=== PATIENT | female | born 1985 | race Caucasian/White ===

== ENCOUNTER 2016-05-22 16:34 | Emergency (ER) | payer MEDICAID ==
[~2016-05-22] VITALS: Ht 160 cm; Wt 143.2 kg
[~2016-05-22 16:34] MED LIST: 00186-0372-20 IH; ALBUTEROL0.83 MG/ML IH; AMITRIPTYLINE H50 M1 PO; AMOXICILLIN 50500 MG PO; AMOXICILLIN 8751 TAB PO; BUSPAR10 MG PO; CLARITIN 1010 MG/TAB PO; CYMBALTA 30MG30 MG PO; CYMBALTA 60MG60 MG PO; DIABETA 5MG5 MG/TAB PO; FENUGREEK610 MG PO; FIORICET 325 MG1 TA1 PO; FLEXERIL 1010 MG/TAB PO; GLUCOPHAGE1000 MG PO; HYDROCODONE/APAP; IBUPROFEN; IRON325 MG PO; KEPPRA1000 MG PO; LANTUS100 U/ML SQ; LIORESAL 1010 MG/TAB PO; LORTAB 5/500 501 TAB PO; LYRICA 25MG CAP25 MG PO; LYRICA 50MG CAP50 MG PO; MELATONIN5 M2 PO; MIGRAINE MEDICATION; MOTRIN 800800 MG/TAB PO; NAPROSYN500 MG PO; NORCO 325 MG-51 TAB PO; NORCO 325 MG-7.1 TAB PO; NOVOLOG 100U100 U/M1 SQ; PERCOCET 325 MG1 TA2 PO; PERCOCET 325 MG1 TAB PO; PERCR 7.5 PO; PHENERGAN 25 TA25 MG PO; PHENERGAN25 MG RC; PREDNISONE20 MG PO; PRENATAL1 TA1 PO; PRENATAL1 TA7 PO; PRILOSEC 20MG20 MG PO; REGLAN 10MG10 MG/TAB PO; REQUIP0.25 MG PO; SINGULAIR 110 MG/TAB PO; SOMA 350MG350 MG/TAB PO; TESSALON PERLE200 MG PO; TORADOL 10MG TA10 MG PO; TROKEND100; ULTRAM 50MG TAB50 MG PO; VENTOLIN0.09 MG IH; XANAX 0.5MG0.5 MG PO; XANAX 1MG1 MG PO; ZITHROMAX Z PA250 MG PO; ZOFRAN 4MG T4 MG/TAB PO; ZOFRAN8 MG PO
[2016-05-22 16:35] VITALS: TEMP 97.8
[2016-05-22 18:33] LABS: ADJUSTED CALCIUM 8.8 mg/dL (8.4-10.2); ALBUMIN 4.2 gm/dL (3.5-5.0); BILIRUBIN,TOTAL 0.5 mg/dL (0.0-1.0); CREATININE, serum 0.58 mg/dL (0.52-1.25); POTASSIUM 4.1 mmol/L (3.4-5.0); TOTAL PROTEIN 8.3 gm/dL (6.4-8.2)
[2016-05-22 18:34] LABS: BASO % 0.1 % (0.0-2.0); EOS # 0.2 (0.0-0.7); GRAN % 66.6 % (42.2-75.2); HEMATOCRIT 40.9 % (37.0-47.0); HEMOGLOBIN 12.6 g/dl (12.5-16.0); LYMPH # 2.9 (1.2-3.4); LYMPH % 27.4 % (20.0-51.0); MEAN CELL VOLUME 80 fl (80.0-100.0); MEAN CORPUSCULAR HEMOGLOBIN 25 pg (27.0-31.0); MEAN CORPUSCULAR HGB CONC 31 g/dl (33.0-37.0); MEAN PLATELET VOLUME 10.3 fl (7.4-10.4); MONO # 0.4 (0.1-0.6); MONO % 3.6 % (1.7-9.3); PLATELET COUNT 286 K/mm3 (130-400); RED BLOOD COUNT 5.12 M/mm3 (4.10-5.30); REDCELL DISTRIBUTION WIDTH-CV 16.6 % (11.5-14.5); WHITE BLOOD COUNT 10.5 K/mm3 (4.8-10.8)
[2016-05-22] MEDS ORDERED: ORTHO-CYCLEN 351 TAB PO (18:50)
[2016-05-22 19:05] VITALS: BP 121/76; PULSE 72
== END 2016-05-22 19:07 | disposition home or self-care (01) ==
LOC: COL.ER 16:34
PROVIDERS: Emergency Medicine
DX: N92.0 Excessive and frequent menstruation with regular cycle (principal); E11.9 Type 2 diabetes mellitus without complications; Z79.84 Long term (current) use of oral hypoglycemic drugs
CPT/HCPCS: J2270

== ENCOUNTER 2016-07-21 23:31 | Emergency (ER) | payer MEDICAID ==
[~2016-07-21] VITALS: Ht 162.6 cm; Wt 143.2 kg
[~2016-07-21 23:31] MED LIST changes: +ORTHO-CYCLEN 351 TAB PO
[2016-07-21 23:35] VITALS: BP 127/80; TEMP 96.8
[2016-07-22 00:34] LABS: INFLUENZA B NEGATIVE
[2016-07-22 01:55] VITALS: PULSE 94
== END 2016-07-22 01:56 | disposition home or self-care (01) ==
LOC: COL.ER 23:31
PROVIDERS: Physician Assistant
DX: R05 Cough (principal); E66.01 Morbid (severe) obesity due to excess calories; Z68.43 Body mass index [BMI] 50.0-59.9, adult
CPT/HCPCS: J1100

== ENCOUNTER → 2016-09-17 | Outpatient (CLI) | payer MEDICAID ==
[~2016-09-17] MED LIST changes: +ZOFRAN ODT4 MG PO
== END ==
LOC: MHCPAIN 09:41
DX: G89.29 Other chronic pain (principal); M47.817 Spondylosis without myelopathy or radiculopathy, lumbosacral region; M53.3 Sacrococcygeal disorders, not elsewhere classified; F17.210 Nicotine dependence, cigarettes, uncomplicated
CPT/HCPCS: G0463

== ENCOUNTER 2016-09-29 03:01 | Emergency (ER) | payer MEDICAID ==
[~2016-09-29] VITALS: Ht 162.6 cm; Wt 150.0 kg
[~2016-09-29 03:01] MED LIST changes: -ZOFRAN ODT4 MG PO
[2016-09-29 03:13] VITALS: TEMP 99.2
[2016-09-29 04:47] LABS: BASO % 0.1 % (0.0-2.0); EOS # 0.2 (0.0-0.7); EOS % 2.6 % (0-4.0); GRAN # 6.4 (1.4-6.5); GRAN % 72.3 % (42.2-75.2); HEMATOCRIT 40.1 % (37.0-47.0); HEMOGLOBIN 12.2 g/dl (12.5-16.0); LYMPH # 1.8 (1.2-3.4); LYMPH % 20.1 % (20.0-51.0); MEAN CELL VOLUME 81 fl (80.0-100.0); MEAN CORPUSCULAR HEMOGLOBIN 25 pg (27.0-31.0); MEAN CORPUSCULAR HGB CONC 30 g/dl (33.0-37.0); MEAN PLATELET VOLUME 9.8 fl (7.4-10.4); MONO # 0.4 (0.1-0.6); MONO % 4.4 % (1.7-9.3); PLATELET COUNT 243 K/mm3 (130-400); RED BLOOD COUNT 4.96 M/mm3 (4.10-5.30); WHITE BLOOD COUNT 8.8 K/mm3 (4.8-10.8)
[2016-09-29 04:59] LABS: PH 6 (5-8); URINE APPEARANCE Clear; URINE BILIRUBIN Negative (NEGATIVE); URINE BLOOD 3+ (NEGATIVE); URINE COLOR Yellow; URINE GLUCOSE 1+ (NEGATIVE); URINE KETONE Negative (NEGATIVE); URINE UROBILINOGEN Negative (NEGATIVE)
[2016-09-29 05:02] LABS: URINE RBC 20-50 /hpf; URINE WBC 0-2 /hpf
[2016-09-29 05:03] LABS: ADJUSTED CALCIUM 8.1 mg/dL (8.4-10.2); ALBUMIN 3.8 gm/dL (3.5-5.0); BILIRUBIN,TOTAL 0.5 mg/dL (0.0-1.0); C-REACTIVE PROTEIN 2.2 mg/dL (0.0-0.9); CALCIUM 7.9 mg/dL (8.4-10.2); CREATININE, serum 0.5 mg/dL (0.52-1.25); POTASSIUM 4.1 mmol/L (3.4-5.0); TOTAL PROTEIN 7.5 gm/dL (6.4-8.2)
[2016-09-29] MEDS ORDERED: ZOFRAN ODT4 MG PO (05:35)
[2016-09-29] MEDS ORDERED: NORCO 325 MG-51 TAB PO (05:35)
[2016-09-29 05:52] VITALS: BP 117/64; PULSE 73
== END 2016-09-29 05:55 | disposition home or self-care (01) ==
LOC: COL.ER 03:01
PROVIDERS: Family Medicine
DX: S39.012A Strain of muscle, fascia and tendon of lower back, initial encounter (principal); S33.9XXA Sprain of unspecified parts of lumbar spine and pelvis, initial encounter; W18.30XA Fall on same level, unspecified, initial encounter; M48.00 Spinal stenosis, site unspecified; G89.29 Other chronic pain; E11.9 Type 2 diabetes mellitus without complications; Z79.84 Long term (current) use of oral hypoglycemic drugs
CPT/HCPCS: J2405; J2550; J7030

== ENCOUNTER 2017-02-12 20:32 | Emergency (ER) | payer MEDICAID ==
[~2017-02-12] VITALS: Ht 160 cm; Wt 135.0 kg
[~2017-02-12 20:32] MED LIST changes: +ZOFRAN ODT4 MG PO
[2017-02-12 20:35] VITALS: BP 138/85; TEMP 98
[2017-02-12 21:33] LABS: PH 8 (5-8); SQUAMOUS EPITHELIAL 0-2 /hpf; URINE APPEARANCE Clear; URINE BACTERIA Rare /hpf; URINE BILIRUBIN Negative (NEGATIVE); URINE BLOOD Negative (NEGATIVE); URINE COLOR Straw; URINE GLUCOSE 3+ (NEGATIVE); URINE KETONE Negative (NEGATIVE); URINE RBC 0-2 /hpf; URINE UROBILINOGEN Negative (NEGATIVE); URINE WBC 0-2 /hpf
[2017-02-12] MEDS ORDERED: CANA100T PO (21:36)
[2017-02-12 21:40] VITALS: PULSE 82
== END 2017-02-12 21:40 | disposition home or self-care (01) ==
LOC: COL.ER 20:32
PROVIDERS: Family Medicine
DX: G89.29 Other chronic pain (principal); M54.5 Low back pain; E66.9 Obesity, unspecified; R20.3 Hyperesthesia; R11.2 Nausea with vomiting, unspecified; Z68.43 Body mass index [BMI] 50.0-59.9, adult; Z79.84 Long term (current) use of oral hypoglycemic drugs
CPT/HCPCS: J2270; J2360; J2550

== ENCOUNTER 2017-07-19 15:52 | Emergency (ER) | payer MEDICAID ==
[~2017-07-19] VITALS: Ht 162.6 cm; Wt 143.2 kg
[~2017-07-19 15:52] MED LIST changes: +CANA100T PO
[2017-07-19 15:56] VITALS: TEMP 97.9
[2017-07-19 16:43] LABS: BASO % 0.2 % (0.0-2.0); EOS # 0.4 (0.0-0.7); EOS % 3.8 % (0-4.0); GRAN # 5.9 (1.4-6.5); GRAN % 60.2 % (42.2-75.2); HEMATOCRIT 42.4 % (37.0-47.0); HEMOGLOBIN 13.1 g/dl (12.5-16.0); LYMPH % 30.9 % (20.0-51.0); MEAN CELL VOLUME 81 fl (80.0-100.0); MEAN CORPUSCULAR HEMOGLOBIN 25 pg (27.0-31.0); MEAN CORPUSCULAR HGB CONC 31 g/dl (33.0-37.0); MEAN PLATELET VOLUME 9.6 fl (7.4-10.4); MONO # 0.4 (0.1-0.6); MONO % 4.5 % (1.7-9.3); PLATELET COUNT 275 K/mm3 (130-400); RED BLOOD COUNT 5.27 M/mm3 (4.10-5.30)
[2017-07-19] MEDS ORDERED: PROVERA 10MG10 MG PO (17:04)
[2017-07-19 17:16] VITALS: BP 125/68; PULSE 78
== END 2017-07-19 17:46 | disposition home or self-care (01) ==
LOC: COL.ER 15:52
PROVIDERS: Physician Assistant
DX: N93.8 Other specified abnormal uterine and vaginal bleeding (principal); E11.9 Type 2 diabetes mellitus without complications; E66.01 Morbid (severe) obesity due to excess calories; Z79.4 Long term (current) use of insulin

== ENCOUNTER → 2017-08-12 | Outpatient (CLI) | payer MEDICAID ==
[~2017-08-12] MED LIST changes: +PROVERA 10MG10 MG PO
== END ==
LOC: COL.RAD 08:24
DX: R11.2 Nausea with vomiting, unspecified (principal)
CPT/HCPCS: A9541

== ENCOUNTER 2017-10-16 23:58 | Emergency (ER) | payer MEDICAID ==
[~2017-10-16] VITALS: Ht 162.6 cm; Wt 150.0 kg
[2017-10-17 00:09] VITALS: BP 136/71; TEMP 98.2
[2017-10-17 01:08] LABS: COLLECTION METHOD CLEAN CATCH
[2017-10-17 01:11] LABS: BASO % 0.2 % (0.0-2.0); EOS # 0.3 (0.0-0.7); EOS % 2.2 % (0-4.0); GRAN % 68.4 % (42.2-75.2); HEMATOCRIT 42.2 % (37.0-47.0); HEMOGLOBIN 13.1 g/dl (12.5-16.0); LYMPH # 3.3 (1.2-3.4); MEAN CELL VOLUME 77 fl (80.0-100.0); MEAN CORPUSCULAR HEMOGLOBIN 24 pg (27.0-31.0); MEAN CORPUSCULAR HGB CONC 31 g/dl (33.0-37.0); MONO # 0.5 (0.1-0.6); MONO % 3.7 % (1.7-9.3); PLATELET COUNT 305 K/mm3 (130-400); RED BLOOD COUNT 5.45 M/mm3 (4.10-5.30); REDCELL DISTRIBUTION WIDTH-CV 17.3 % (11.5-14.5)
[2017-10-17 01:16] LABS: PH 7 (5-8); URINE APPEARANCE Hazy; URINE BACTERIA None Seen /hpf; URINE BILIRUBIN Negative (NEGATIVE); URINE BLOOD Negative (NEGATIVE); URINE COLOR Yellow; URINE GLUCOSE 3+ (NEGATIVE); URINE KETONE Negative (NEGATIVE); URINE LEUKOCYTE ESTERASE Negative (NEGATIVE); URINE NITRATE Negative (NEGATIVE); URINE PROTEIN(semi-quant) Negative (NEGATIVE); URINE RBC 0-2 /hpf; URINE UROBILINOGEN Negative (NEGATIVE)
[2017-10-17 01:21] LABS: ALBUMIN 4.1 gm/dL (3.5-5.0); BILIRUBIN,TOTAL 0.5 mg/dL (0.0-1.0); CALCIUM 9.4 mg/dL (8.4-10.2); CREATININE, serum 0.52 mg/dL (0.52-1.25); POTASSIUM 3.8 mmol/L (3.4-5.0); TOTAL PROTEIN 8.9 gm/dL (6.4-8.2)
[2017-10-17 01:29] LABS: C-REACTIVE PROTEIN 2.7 mg/dL (0.0-0.9)
[2017-10-17 02:55] VITALS: PULSE 68
== END 2017-10-17 02:56 | disposition home or self-care (01) ==
LOC: COL.ER 23:58
PROVIDERS: Nurse Practitioner Primary Care
DX: R11.2 Nausea with vomiting, unspecified (principal); R10.31 Right lower quadrant pain; R10.11 Right upper quadrant pain; E11.9 Type 2 diabetes mellitus without complications; J45.909 Unspecified asthma, uncomplicated; K21.9 Gastro-esophageal reflux disease without esophagitis; F17.210 Nicotine dependence, cigarettes, uncomplicated; Z90.49 Acquired absence of other specified parts of digestive tract; Z98.890 Other specified postprocedural states; Z79.4 Long term (current) use of insulin
CPT/HCPCS: J2270; J2765; J7030; Q9967

== ENCOUNTER → 2018-04-22 | Outpatient (CLI) | payer MEDICAID | LOC: COL.RAD 14:45 | DX: R11.2 Nausea with vomiting, unspecified (principal); R10.9 Unspecified abdominal pain; R12 Heartburn; R19.7 Diarrhea, unspecified; Z90.49 Acquired absence of other specified parts of digestive tract ==

== ENCOUNTER 2018-05-01 13:26 | Day surgery (SDC) | payer MEDICAID ==
[~2018-05-01] VITALS: Ht 160 cm; Wt 130.5 kg
[2018-05-01] MEDS ORDERED: FIORICET 325 MG1 TA1 PO (13:57)
[2018-05-01] MEDS ORDERED: IPRATROPIUM BROM3 M1 IH (13:57)
[2018-05-01] MEDS ORDERED: LIPITOR 10MG10 MG PO (13:58)
[2018-05-01] MEDS ORDERED: REQUIP 1MG T1 MG/TAB PO (13:58)
[2018-05-01] MEDS ORDERED: PRILOSEC 20MG20 MG PO (13:58)
[2018-05-01] MEDS ORDERED: PHENERGAN 25 TA25 MG PO (13:59)
[2018-05-01] MEDS ORDERED: PROAIR HFA0.09 MG/AC IH (13:59)
[2018-05-01] MEDS ORDERED: HUMULIN 70/3100 U/M1 SQ (14:00)
[2018-05-01 14:06] VITALS: BP 132/81; PULSE 89; TEMP 97
[2018-05-01 15:00] VITALS: BP 132/76; PULSE 86; TEMP 97
[2018-05-01 15:15] VITALS: BP 118/53; PULSE 76
[2018-05-01 15:30] VITALS: BP 119/63; PULSE 62
[2018-05-01 15:45] VITALS: BP 112/63; PULSE 75
== END 2018-05-01 16:15 | disposition home or self-care (01) ==
LOC: SDCO 13:26
DX: K21.9 Gastro-esophageal reflux disease without esophagitis (principal); K44.9 Diaphragmatic hernia without obstruction or gangrene; R10.9 Unspecified abdominal pain; K58.0 Irritable bowel syndrome with diarrhea; Z87.11 Personal history of peptic ulcer disease; Z79.899 Other long term (current) drug therapy; J45.909 Unspecified asthma, uncomplicated; R13.10 Dysphagia, unspecified
CPT/HCPCS: J2250; J2405; J3010; J7030

== ENCOUNTER 2018-06-06 07:31 | Emergency (ER) | payer MEDICAID ==
[~2018-06-06] VITALS: Ht 165.1 cm; Wt 126.4 kg
[~2018-06-06 07:31] MED LIST changes: +HUMULIN 70/3100 U/M1 SQ; +IPRATROPIUM BROM3 M1 IH; +LIPITOR 10MG10 MG PO; +PROAIR HFA0.09 MG/AC IH; +REQUIP 1MG T1 MG/TAB PO
[2018-06-06 07:38] VITALS: TEMP 98.4
[2018-06-06] MEDS ORDERED: NORCO 325 MG-51 TAB PO (09:09)
[2018-06-06] MEDS ORDERED: LIDODERM 5% PATC1 EA TP (09:31)
[2018-06-06 09:43] VITALS: BP 113/48; PULSE 71
== END 2018-06-06 09:43 | disposition home or self-care (01) ==
LOC: COL.ER 07:31
DX: S39.012A Strain of muscle, fascia and tendon of lower back, initial encounter (principal); E11.9 Type 2 diabetes mellitus without complications; F43.10 Post-traumatic stress disorder, unspecified; F31.9 Bipolar disorder, unspecified; G43.909 Migraine, unspecified, not intractable, without status migrainosus; F17.210 Nicotine dependence, cigarettes, uncomplicated; Z90.49 Acquired absence of other specified parts of digestive tract; Z98.890 Other specified postprocedural states; Z79.4 Long term (current) use of insulin; W00.0XXA Fall on same level due to ice and snow, initial encounter
CPT/HCPCS: J1885

== ENCOUNTER → 2019-05-19 | Outpatient (CLI) | payer MEDICAID ==
[~2019-05-19] MED LIST changes: +LIDODERM 5% PATC1 EA TP
== END ==
LOC: MHCPAIN 10:10
DX: M54.12 Radiculopathy, cervical region (principal); M47.812 Spondylosis without myelopathy or radiculopathy, cervical region
CPT/HCPCS: G0463

== ENCOUNTER 2020-09-06 09:45 | Outpatient (CLI) | payer MEDICAID ==
[~2020-09-06] VITALS: Ht 165.2 cm; Wt 142.0 kg
[~2020-09-06 09:45] MED LIST changes: -LYRICA 50MG CAP50 MG PO; +LYRICA200 MG PO; -PROAIR HFA0.09 MG/AC IH
[2020-09-06 10:14] VITALS: BP 123/68; PULSE 61; TEMP 97.8
[2020-09-06] MEDS ORDERED: PROAIR HFA0.09 MG/AC IH (10:40)
[2020-09-06] MEDS ORDERED: NORCO 325 MG-51 TAB PO (10:43)
[2020-09-06] MEDS ORDERED: RT ADVAIR 128 DISKUS IH (10:44)
[2020-09-06] MEDS ORDERED: PROVIGIL200 MG PO (10:45)
[2020-09-06] MEDS ORDERED: LAMICTAL XR50 MG PO (10:46)
[2020-09-06] MEDS ORDERED: BUSPAR10 MG PO (10:50)
[2020-09-06] MEDS ORDERED: BYDUREON B2 MG/0.85 IJ (10:50)
[2020-09-06] MEDS ORDERED: UBRELVY50 MG PO (10:51)
[2020-09-06] MEDS ORDERED: SINGULAIR 110 MG/TAB PO (10:52)
[2020-09-06] MEDS ORDERED: LIPITOR 10MG10 MG PO (10:53)
[2020-09-06] MEDS ORDERED: TROKEND100 PO (10:56)
[2020-09-06] MEDS ORDERED: PRENATAL PLUS PO (10:56)
[2020-09-06] MEDS ORDERED: ZOLOFT 100MG100 MG PO (10:57)
[2020-09-06] MEDS ORDERED: INDOCIN50 MG PO (10:57)
--- NOTE | 2020-09-06 11:52 | NUR ---
Pt returned from procedure.
[2020-09-06 12:00] VITALS: BP 123/68; PULSE 59
[2020-09-06 12:15] VITALS: BP 121/72; PULSE 58
[2020-09-06 12:30] VITALS: BP 128/72; PULSE 58
--- NOTE | 2020-09-06 12:40 | NUR ---
Discharge instructions given to pt.Pt verbalizes understanding.INT removed,catheter tip intact.Pt escorted out via wheelchair.
[2020-09-06 12:45] VITALS: BP 123/83; PULSE 52
== END 2020-09-06 13:38 | disposition home or self-care (01) ==
LOC: COL.CAR 09:45
DX: R55 Syncope and collapse (principal); R00.2 Palpitations; R07.9 Chest pain, unspecified; R06.02 Shortness of breath; M19.90 Unspecified osteoarthritis, unspecified site; J45.909 Unspecified asthma, uncomplicated; M51.34 Other intervertebral disc degeneration, thoracic region; I95.9 Hypotension, unspecified; G43.909 Migraine, unspecified, not intractable, without status migrainosus; E66.9 Obesity, unspecified; G47.30 Sleep apnea, unspecified; E11.9 Type 2 diabetes mellitus without complications; M48.00 Spinal stenosis, site unspecified; M50.20 Other cervical disc displacement, unspecified cervical region; F41.9 Anxiety disorder, unspecified; Z90.89 Acquired absence of other organs; Z20.822 Contact with and (suspected) exposure to COVID-19; Z88.1 Allergy status to other antibiotic agents; Z91.040 Latex allergy status; Z88.8 Allergy status to other drugs, medicaments and biological substances; Z79.891 Long term (current) use of opiate analgesic; Z79.899 Other long term (current) drug therapy; Z79.84 Long term (current) use of oral hypoglycemic drugs; Z87.891 Personal history of nicotine dependence; Z82.49 Family history of ischemic heart disease and other diseases of the circulatory system

== ENCOUNTER 2020-09-18 11:14 | Emergency (ER) | payer MEDICAID ==
[~2020-09-18] VITALS: Ht 162.6 cm; Wt 140.9 kg
[~2020-09-18 11:14] MED LIST changes: +BYDUREON B2 MG/0.85 IJ; +INDOCIN50 MG PO; +LAMICTAL XR50 MG PO; +PRENATAL PLUS PO; +PROAIR HFA0.09 MG/AC IH; +PROVIGIL200 MG PO; +RT ADVAIR 128 DISKUS IH; +TROKEND100 PO; +UBRELVY50 MG PO; +ZOLOFT 100MG100 MG PO
[2020-09-18 11:26] VITALS: TEMP 98
[2020-09-18] MEDS ORDERED: TOPAMAX50 MG PO (12:06)
[2020-09-18 12:16] LABS: COLLECTION METHOD CLEAN CATCH
[2020-09-18 12:28] LABS: PH 6 (5-8); SQUAMOUS EPITHELIAL 0-2 /hpf; URINE APPEARANCE Clear; URINE BACTERIA None Seen /hpf; URINE BILIRUBIN Negative (NEGATIVE); URINE BLOOD Negative (NEGATIVE); URINE COLOR Straw; URINE GLUCOSE 3+ (NEGATIVE); URINE KETONE Negative (NEGATIVE); URINE LEUKOCYTE ESTERASE Negative (NEGATIVE); URINE NITRATE Negative (NEGATIVE); URINE PROTEIN(semi-quant) Negative (NEGATIVE); URINE RBC 0-2 /hpf; URINE UROBILINOGEN Negative (NEGATIVE)
[2020-09-18 13:02] LABS: BASO % 0.2 % (0.0-2.0); EOS # 0.2 (0.0-0.7); EOS % 1.7 % (0-4.0); GRAN # 7.2 (1.4-6.5); GRAN % 71.8 % (42.2-75.2); HEMATOCRIT 43.3 % (37.0-47.0); HEMOGLOBIN 13.1 g/dl (12.5-16.0); LYMPH # 2.1 (1.2-3.4); LYMPH % 20.6 % (20.0-51.0); MEAN CELL VOLUME 82 fl (80.0-100.0); MEAN CORPUSCULAR HEMOGLOBIN 25 pg (27.0-31.0); MEAN CORPUSCULAR HGB CONC 30 g/dl (33.0-37.0); MEAN PLATELET VOLUME 9.9 fl (7.4-10.4); MONO # 0.5 (0.1-0.6); MONO % 5.3 % (1.7-9.3); PLATELET COUNT 242 K/mm3 (130-400); RED BLOOD COUNT 5.27 M/mm3 (4.10-5.30); REDCELL DISTRIBUTION WIDTH-CV 17.9 % (11.5-14.5)
[2020-09-18 13:22] LABS: ALANINE AMINOTRANSFERASE 15 U/L (4-34); ALBUMIN 4.3 gm/dL (3.5-5.0); ALKALINE PHOSPHATASE 93 U/L (50-136); ANION GAP 9 mmol/L (7-16); AST,SGOT 17 U/L (15-37); BILIRUBIN,TOTAL < 0.1 mg/dL (0.0-1.0); BLOOD UREA NITROGEN 12 mg/dL (7-17); CALCIUM 8.8 mg/dL (8.4-10.2); CARBON DIOXIDE 21 mmol/L (22-30); CHLORIDE 109 mmol/L (98-107); GLUCOSE 122 mg/dL (74-106); POTASSIUM 4.1 mmol/L (3.4-5.0); SODIUM 139 mmol/L (137-145); TOTAL PROTEIN 8.1 gm/dL (6.4-8.2)
[2020-09-18 13:36] LABS: TROPONIN-I < 0.012 ng/mL (0.000-0.035)
[2020-09-18 14:08] VITALS: BP 123/81; PULSE 68
== END 2020-09-18 14:10 | disposition home or self-care (01) ==
LOC: COL.ER 11:14
PROVIDERS: Emergency Medicine
DX: R07.89 Other chest pain (principal); E11.9 Type 2 diabetes mellitus without complications; E66.01 Morbid (severe) obesity due to excess calories; F17.210 Nicotine dependence, cigarettes, uncomplicated; Z91.040 Latex allergy status; Z88.1 Allergy status to other antibiotic agents; Z88.7 Allergy status to serum and vaccine; Z88.6 Allergy status to analgesic agent; Z88.2 Allergy status to sulfonamides; Z79.84 Long term (current) use of oral hypoglycemic drugs; Z68.43 Body mass index [BMI] 50.0-59.9, adult